=== PATIENT | male | born 1955 | race Caucasian/White ===

== ENCOUNTER 2017-03-27 03:54 | Inpatient (IN) | payer OTHER ==
[~2017-03-27] VITALS: Ht 177.8 cm; Wt 106.6 kg
[2017-03-27] VITALS (10 sets, daily range): BP systolic 115–154; BP diastolic 77–88
[~2017-03-27 03:54] MED LIST: BENICAR20 MG PO; CHOLEST OFF450 MG PO; DAILY MULTIPLE1 EACH PO; Ecotrin PO; FLAX SEED OIL1 EACH PO; LOSARTAN POTASS25 MG PO; LOVAZA1 GM PO; Lovaza PO; NIACIN50 MG PO; NORCO 5/3251 TABLET PO; Niacin PO; RED YEAST RICE600 MG PO; TRILIPIX135 MG PO; TYLENOL REGULA325 MG PO; Theragran PO; VALIUM2 MG PO; WELCHOL625 MG PO
[2017-03-27 04:20] LABS: EOSINOPHIL (%) 1.8 % (0-5); EOSINOPHIL COUNT 0.1 K/uL (0-0.3); HEMATOCRIT 42.3 % (38.0-50.0); IMMATURE GRANULOCYTE (%) 0.3 % (0.0-0.7); INSTRUMENT ABS NEUTROPHIL CT 3.7 K/uL; LYMPHOCYTE COUNT 2.7 K/uL (1.0-2.8); MCH 28.7 PG (29.0-34.0); MCV 84.3 FL (86-99); MEAN PLAT.VOLUME 9.8 uM^3 (9.0-12.4); MONOCYTE (%) 7.8 % (3-12); MONOCYTE COUNT 0.6 K/uL (0-0.8); NEUTROPHIL (%) 51.5 % (45-76); NEUTROPHIL COUNT 3.7 K/uL (1.8-6.4); PLATELET COUNT 265 K/uL (156-360); RBC DIS.WIDTH-CV 13.3 % (11.8-14.6); RBC DIS.WIDTH-SD 41.1 % (39-53); RED BLOOD COUNT 5.02 M/uL (4.00-5.50); WHITE BLOOD COUNT 7.1 K/uL (4.1-10.2)
[2017-03-27 04:28] LABS: INTER. NORMALIZED RATIO 0.8; PROTHROMBIN TIME 9.5 SEC (10.2-12.9)
[2017-03-27 04:30] LABS: PTT 27.9 SEC (25-37)
[2017-03-27 04:31] LABS: AMYLASE 74 IU/L (1-118); CHLORIDE 105 mEq/L (99-109); POTASSIUM 3.2 mEq/L (3.7-5.4); SODIUM 136 mEq/L (136-147)
[2017-03-27 04:32] LABS: GLUCOSE 126 mg/dL (70-99)
[2017-03-27 04:34] LABS: ANION GAP 8 MEQ/L (2-14)
[2017-03-27 04:35] LABS: SERUM ETHYL ALCOHOL < 10 mg/dL
[2017-03-27 04:36] LABS: GFR ESTIMATE (CALCULATED) > 59 mL/min/
[2017-03-27 04:37] LABS: UREA NITROGEN (BUN) 10 mg/dL (9-23)
[2017-03-27 04:39] LABS: LIPASE 73 U/L (1.0-51.0)
[2017-03-27 04:40] LABS: TROP-I INTERPRETATION NEGATIVE; TROPONIN-I < 0.01 ng/mL (0.0-0.30)
[2017-03-27 07:24] LABS: METH RESISTANT S AUREUS PCR NEGATIVE (NEGATIVE)
[2017-03-27 07:45] LABS: PROBE CHECK PASS; SPECIMEN PROCESSING CONTROL PASS
[2017-03-27 13:05] LABS: TROP-I INTERPRETATION POSITIVE; TROPONIN-I 0.94 ng/mL (0.0-0.30)
[2017-03-27 17:36] LABS: TROP-I INTERPRETATION POSITIVE
[2017-03-27 18:35] LABS: TROP-I INTERPRETATION POSITIVE; TROPONIN-I 0.92 ng/mL (0.0-0.30)
[2017-03-27 19:30] LABS: ANION GAP 12 MEQ/L (2-14); CHLORIDE 108 MEQ/L (99-109); POTASSIUM 4.3 MEQ/L (3.7-5.4); SAMPLE HEMOLYSIS CHECK 0; SAMPLE ICTERIC CHECK 0; SAMPLE LIPEMIA CHECK 0; SODIUM 142 MEQ/L (136-147)
[2017-03-27 19:35] LABS: GFR ESTIMATE (CALCULATED) > 59 mL/min/; UREA NITROGEN (BUN) 13 mg/dL (9-23)
[2017-03-27 19:36] LABS: GLUCOSE 91 mg/dL (70-99)
[2017-03-28] VITALS: BP 103/66
[2017-03-28 01:34] LABS: TROP-I INTERPRETATION POSITIVE
[2017-03-28 01:38] LABS: TROPONIN-I 0.66 ng/mL (0.0-0.30)
[2017-03-28 02:00] VITALS: BP 124/67
[2017-03-28 04:00] VITALS: BP 115/68
[2017-03-28 06:00] VITALS: BP 127/75
[2017-03-28 08:00] VITALS: BP 138/63
[2017-03-28 08:00] LABS: TROP-I INTERPRETATION INDETERMINATE; TROPONIN-I 0.51 ng/mL (0.0-0.30)
[2017-03-28] MEDS ORDERED: LOPRESSOR25 MG PO (12:05)
[2017-03-28] MEDS ORDERED: ASPIR-LOW81 MG PO (12:05)
[2017-03-28] MEDS ORDERED: ATORVASTATIN CA80 MG PO (12:05)
[2017-03-28] MEDS ORDERED: BRILINTA90 MG PO (12:05)
== END 2017-03-28 13:00 | disposition home or self-care (01) | DRG 247 ==
LOC: EME 03:54 → CATH 04:40 → EME 04:40 → 4WEST 05:19 → 2SOUTH 05:19 → ENRESERV 05:20 → 4WEST 05:51
PROVIDERS: Emergency Medicine; Internal Medicine Cardiovascular Disease
DX: I21.11 ST elevation (STEMI) myocardial infarction involving right coronary artery (principal); I25.10 Atherosclerotic heart disease of native coronary artery without angina pectoris; E78.5 Hyperlipidemia, unspecified; I10 Essential (primary) hypertension; Z83.3 Family history of diabetes mellitus
CPT/HCPCS: 71010; 80048; 80048 91; 81003; 82150; 83690; 84484; 85025; 85347; 85610; 85730; 86850; 86900; 86901; 87641; 93005; 93306; 94760; 94799; 99281; 99285; C1725; C1769; C1874; C1887; G0480; J1644; J2250; J3010; J3246; J7030